=== PATIENT | female | born 1970 | race Caucasian/White ===

== ENCOUNTER 2016-12-23 09:20 | Emergency (ER) | payer OTHER ==
[~2016-12-23 09:20] MED LIST: /PANT40TA OR; ACET65TA OR; ALBU17IN INH; ATROVENT0.02% INH; AVEL1TAB PO; COLA100C2 OR; COMBAER6 INH; FLEX10TA2 PO; FLUO40CA PO; LEVA500T PO; LEVA750T OR; METH40TA OR; NAPR550T PO; NICO21DI4 TD; NYST50SS SS; PRED10TA PO; PRED10TA2 OR; PRED20TA OR; PRED5TAB OR; PREDPOW10 PO; PREG50CA PO; SYMB16INH INH; SYMB80AE IN; XOPE0.632 IN; ZYPR20TA PO
[2016-12-23] MEDS ORDERED: NALOXONE INJ 2 MG/2 ML SYRINGE (J2310) As Ordered ONE (09:22)
[2016-12-23] MEDS ORDERED: NALOXONE INJ 2 MG/2 ML SYRINGE (J2310) IV STA (09:24)
[2016-12-23] MEDS ORDERED: NALOXONE INJ 2 MG/2 ML SYRINGE (J2310) STA (09:26)
[2016-12-23] MEDS ORDERED: NALOXONE INJ 2 MG/2 ML SYRINGE (J2310) IV ONE (09:30)
[2016-12-23] MEDS ORDERED: NS 1,000 ML IV ONE (09:30)
[2016-12-23 09:37] VITALS: BP 123/84
[2016-12-23 09:45] LABS: ABG HCO3 23.9 MEQ/L (22.0-26.0); ABG PARTIAL PRESSURE CO2 40.5 mmHg (35.0-45.0); ABG PARTIAL PRESSURE O2 78.7 mmHg (75.0-100.0); ABG STANDARD HCO3 23.6 MEQ/L (22.0-26.0); ABG TOTAL CO2 25.1 MEQ/L (22.0-29.0); ABG pH (ARTERIAL) 7.388 UNITS (7.350-7.450)
[2016-12-23 09:45] LABS: BASO # 0.1 K/mm3 (0.0-0.2); BASO % 0.6 % (0.0-1.0); EOS # 0.2 K/mm3 (0.0-0.50); EOS % 1.2 % (0.0-3.0); LARGE UNSTAINED CELL # 0.3 K/mm3 (0.0-0.4); LYMPH # 5.1 K/mm3 (1.5-4.5); LYMPH % 34.2 % (24.0-44.0); MEAN CORPUSCULAR HEMOGLOBIN 28.5 pg (27.0-33.0); MEAN CORPUSCULAR HGB CONC 31.9 g/dl (32.0-36.5); MEAN CORPUSCULAR VOLUME 89.2 fl (80.0-96.0); MONO % 7.1 % (0.0-5.0); NEUTROPHILS # 7.8 K/mm3 (1.8-7.7); PLATELET COUNT, AUTOMATED 279 k/mm3 (150-450)
[2016-12-23 09:47] LABS: WHITE BLOOD COUNT 14.1 K/mm3 (4.0-10.0)
[2016-12-23] MEDS ORDERED: NALOXONE INJ 2 MG/2 ML SYRINGE (J2310) ONE (09:49)
[2016-12-23 09:54] LABS: CONTROL LINE HCG INT CTR LINE PRESENT
[2016-12-23 10:14] LABS: ALBUMIN 3.7 GM/DL (3.2-5.2); ALBUMIN/GLOBULIN RATIO 0.79 (1.00-1.93); ALKALINE PHOSPHATASE 150 U/L (45-117); ALT/SGPT 37 U/L (12-78); ANION GAP 9 MEQ/L (8-16); AST/SGOT 39 U/L (15-37); BILIRUBIN,DIRECT 0.1 MG/DL (0.0-0.2); BILIRUBIN,TOTAL 0.4 MG/DL (0.2-1.0); BLOOD UREA NITROGEN 12 MG/DL (7-18); CALCIUM LEVEL 8.6 MG/DL (8.5-10.1); CARBON DIOXIDE LEVEL 27 MEQ/L (21-32); CHLORIDE LEVEL 106 MEQ/L (98-107); CREATININE FOR GFR 0.68 MG/DL (0.55-1.02); GLOMERULAR FILTRATION RATE > 60.0 (>58); GLUCOSE, FASTING 122 MG/DL (70-105); POTASSIUM SERUM 4.5 MEQ/L (3.5-5.1); SODIUM LEVEL 142 MEQ/L (136-145); TOTAL PROTEIN 8.4 GM/DL (6.4-8.2)
--- NOTE | 2016-12-23 20:29 | ECGEPIP ---
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
== END 2016-12-23 10:08 | disposition left against medical advice (07) ==
LOC: M ED 09:48
DX: T40.1X1A Poisoning by heroin, accidental (unintentional), initial encounter (principal); X58.XXXA Exposure to other specified factors, initial encounter; Y92.89 Other specified places as the place of occurrence of the external cause; Y93.89 Activity, other specified; Y99.8 Other external cause status; Z88.0 Allergy status to penicillin; Z79.52 Long term (current) use of systemic steroids; Z79.899 Other long term (current) drug therapy; F17.210 Nicotine dependence, cigarettes, uncomplicated
CPT/HCPCS: 36415; 36600; 80048; 80076; 82550; 82803; 84443; 84703; 85025; 93005; 93041; 96374; 96376; 99285; G0480; J2310

== ENCOUNTER 2017-08-20 19:22 | Emergency (ER) | payer MEDICAID, OTHER, SELFPAY ==
[~2017-08-20] VITALS: Ht 154.9 cm; Wt 95.5 kg
[~2017-08-20 19:22] MED LIST changes: -AVEL1TAB PO; +AVEL1TAB3 PO; +LEVA1TAB2 PO; -LEVA500T PO; +LISI10TA4 PO; +TYLE500T78 PO
[2017-08-20 19:24] VITALS: BP 126/81
[2017-08-20] MEDS ORDERED: FLUO20CA19 (19:36)
[2017-08-20] MEDS ORDERED: DOXE25CA (19:36)
[2017-08-20] MEDS ORDERED: ARIP1TAB (19:36)
[2017-08-20] MEDS ORDERED: DOLO10TA PO (19:36)
[2017-08-20] MEDS ORDERED: NAPR250T4 PO (20:32)
--- NOTE | 2017-08-22 06:13 | REP ---
RIGHT KNEE, COMPLETE: 08/20/2017. Clinical history: Pain, trauma right knee. Findings: Four views provided. The patient could not perform the sunrise position. Findings: There is prominent prepatellar soft tissue swelling in the subcutaneous fat suggesting patellar bursitis. This suggests a traumatic bursitis given the history. There is no definite joint effusion, fracture, loose body or osteochondral defect. No joint space narrowing identified. No avulsion or fracture fragment. Impression: 1. Prepatellar soft tissue swelling that may reflect traumatic bursitis. No definite joint effusion, fracture, subluxation or other acute finding. Very minimal degenerative changes. Signed by Mazin Best MD 08/21/2017 07:03 P
== END 2017-08-20 21:00 | disposition home or self-care (01) ==
LOC: M ED 19:22
DX: M70.51 Other bursitis of knee, right knee (principal); F43.10 Post-traumatic stress disorder, unspecified; F41.9 Anxiety disorder, unspecified; G89.29 Other chronic pain; M54.9 Dorsalgia, unspecified; J44.9 Chronic obstructive pulmonary disease, unspecified; B19.20 Unspecified viral hepatitis C without hepatic coma; F17.210 Nicotine dependence, cigarettes, uncomplicated; Z88.0 Allergy status to penicillin; Z79.51 Long term (current) use of inhaled steroids; Z79.899 Other long term (current) drug therapy

== ENCOUNTER 2017-10-27 01:12 | Emergency (ER) | payer MEDICAID, OTHER ==
[2017-10-27] MEDS: PERCOCET 5MG/325MG TAB PO ×2 (02:29)
== END 2017-10-27 03:43 | disposition home or self-care (01) ==
LOC: M ED 01:12
DX: S52.042A Displaced fracture of coronoid process of left ulna, initial encounter for closed fracture (principal); W19.XXXA Unspecified fall, initial encounter; Y92.099 Unspecified place in other non-institutional residence as the place of occurrence of the external cause; Y93.01 Activity, walking, marching and hiking; J44.9 Chronic obstructive pulmonary disease, unspecified; F43.10 Post-traumatic stress disorder, unspecified; G89.29 Other chronic pain; M54.9 Dorsalgia, unspecified; F17.200 Nicotine dependence, unspecified, uncomplicated; Z79.899 Other long term (current) drug therapy; Z88.0 Allergy status to penicillin
CPT/HCPCS: 73080

== ENCOUNTER 2017-12-03 09:24 | Emergency (ER) | payer OTHER, MEDICAID | END 2017-12-03 11:51 | disposition home or self-care (01) | LOC: M ED 09:24 | DX: S42.402A Unspecified fracture of lower end of left humerus, initial encounter for closed fracture (principal); J44.9 Chronic obstructive pulmonary disease, unspecified; R05 Cough; X58.XXXA Exposure to other specified factors, initial encounter; Y92.9 Unspecified place or not applicable; Y93.9 Activity, unspecified; Z86.19 Personal history of other infectious and parasitic diseases; F41.9 Anxiety disorder, unspecified; F32.9 Major depressive disorder, single episode, unspecified; F43.10 Post-traumatic stress disorder, unspecified; F19.10 Other psychoactive substance abuse, uncomplicated; F17.200 Nicotine dependence, unspecified, uncomplicated; Z79.899 Other long term (current) drug therapy; Z88.0 Allergy status to penicillin | CPT/HCPCS: 71046 ==

== ENCOUNTER → 2018-03-27 | Outpatient (REF) | payer OTHER, MEDICAID ==
[2018-03-27 19:11] LABS: APPEARANCE, URINE HAZY (CLEAR); BACTERIA, URINE AUTO NEGATIVE (NEGATIVE); BILIRUBIN, URINE AUTO NEGATIVE (NEGATIVE); BLOOD, URINE BLOOD NEGATIVE (NEGATIVE); COLOR, URINE YELLOW (YELLOW); GLUCOSE, URINE (UA) AUTO 3+ mg/dL (NEGATIVE); KETONE, URINE AUTO NEGATIVE (NEGATIVE); LEUKOCYTE ESTERASE, URINE AUTO NEGATIVE (NEGATIVE); NITRITE, URINE AUTO NEGATIVE (NEGATIVE); PROTEIN, URINE AUTO NEGATIVE (NEGATIVE); RBC, URINE AUTO 3 /HPF (0-3); SPECIFIC GRAVITY URINE AUTO 1.029 (1.002-1.035); SQUAMOUS EPITHELIAL CELL UR AU 2 /HPF (0-6); UROBILINOGEN, URINE AUTO 0.2 mg/dL (0.0-2.0); WBC, URINE AUTO 3 /HPF (0-3)
== END ==
LOC: M LAB REF 17:06
DX: R41.82 Altered mental status, unspecified (principal)

== ENCOUNTER → 2018-03-28 | Outpatient (CLI) | payer OTHER ==
[2018-03-28 13:17] LABS: BASO % 0.2 % (0.0-1.0); EOS # 0.2 10^3/uL (0.0-0.50); EOS % 2.1 % (0.0-3.0); HEMATOCRIT 46.4 % (36.0-47.0); HEMOGLOBIN 15.1 g/dl (12.0-15.5); IMMATURE GRANULOCYTE % 0.2 % (0-3.0); LYMPH # 3.4 10^3/uL (1.5-4.5); LYMPH % 38.8 % (24.0-44.0); MEAN CORPUSCULAR HEMOGLOBIN 29.1 pg (27.0-33.0); MEAN CORPUSCULAR HGB CONC 32.5 g/dl (32.0-36.5); MEAN CORPUSCULAR VOLUME 89.4 fl (80.0-96.0); MONO # 0.7 10^3/uL (0.0-0.8); MONO % 8.2 % (0.0-5.0); NEUTROPHILS # 4.4 10^3/uL (1.8-7.7); NEUTROPHILS % 50.5 % (36.0-66.0); PLATELET COUNT, AUTOMATED 222 10^3/uL (150-450); RED BLOOD COUNT 5.19 10^6/uL (4.00-5.40); RED CELL DISTRIBUTION WIDTH 13.5 % (11.5-14.5); WHITE BLOOD COUNT 8.7 10^3/uL (4.0-10.0)
[2018-03-28 13:32] LABS: AMMONIA 30 uMOL/L (<32)
[2018-03-28 13:50] LABS: ALBUMIN 3.5 GM/DL (3.2-5.2); ALBUMIN/GLOBULIN RATIO 0.83 (1.00-1.93); ALKALINE PHOSPHATASE 179 U/L (45-117); ALT/SGPT 65 U/L (12-78); ANION GAP 10 MEQ/L (8-16); AST/SGOT 52 U/L (7-37); BILIRUBIN,TOTAL 0.6 MG/DL (0.2-1.0); BLOOD UREA NITROGEN 11 MG/DL (7-18); CALCIUM LEVEL 9.4 MG/DL (8.5-10.1); CARBON DIOXIDE LEVEL 27 MEQ/L (21-32); CHLORIDE LEVEL 96 MEQ/L (98-107); CHOLESTEROL LEVEL 117 MG/DL (<200); CHOLESTEROL RISK RATIO 2.925 (<5); CREATININE FOR GFR 0.97 MG/DL (0.55-1.30); GLOMERULAR FILTRATION RATE > 60.0 (>58); HDL CHOLESTEROL 40 MG/DL (>40); LDL CHOLESTEROL 49.6 MG/DL (<100); NON-HDL-C 77 MG/DL; POTASSIUM SERUM 4.9 MEQ/L (3.5-5.1); SODIUM LEVEL 133 MEQ/L (136-145); TOTAL PROTEIN 7.7 GM/DL (6.4-8.2); TRIGLYCERIDES LEVEL 137 MG/DL (<150)
[2018-03-28 14:08] LABS: ESTIMATED AVERAGE GLUCOSE 278 MG/DL (60-110); HEMOGLOBIN A1c 11.3 %
[2018-03-28 14:20] LABS: GLUCOSE, FASTING 476 MG/DL (70-100)
[2018-03-29 08:31] LABS: HIV 1&2 SCREEN CENTAUR NEGATIVE (NEGATIVE)
[2018-03-30 10:20] LABS: HEPATITIS C QUANTITATION 929300 IU/mL (.)
== END ==
LOC: M LAB 12:15
DX: R41.82 Altered mental status, unspecified (principal); B18.2 Chronic viral hepatitis C
CPT/HCPCS: 72114

== ENCOUNTER 2018-03-31 23:23 | Emergency (ER) | payer OTHER ==
[2018-04-01] MEDS: KETOROLAC 60 MG/2 ML VIAL (J1885) IM (01:27)
[2018-04-01] MEDS: LIDOCAINE W/EPINEPHRINE 1% 20ML VIAL SC (02:00)
[2018-04-01] MEDS: cefTRIAXone SOD 2 GM in D5W MINI-BAG PLUS 50 ML IV (02:56)
== END 2018-04-01 04:14 | disposition home or self-care (01) ==
LOC: M ED 23:23
DX: L02.416 Cutaneous abscess of left lower limb (principal); J44.9 Chronic obstructive pulmonary disease, unspecified; F17.200 Nicotine dependence, unspecified, uncomplicated; Z79.899 Other long term (current) drug therapy; Z88.0 Allergy status to penicillin
CPT/HCPCS: J0696

== ENCOUNTER 2018-04-04 17:45 | Inpatient (IN) | payer OTHER ==
[2018-04-04 20:09] LABS: HEMATOCRIT 40.8 % (36.0-47.0); HEMOGLOBIN 13.6 g/dl (12.0-15.5); MEAN CORPUSCULAR HEMOGLOBIN 29.4 pg (27.0-33.0); MEAN CORPUSCULAR HGB CONC 33.3 g/dl (32.0-36.5); MEAN CORPUSCULAR VOLUME 88.1 fl (80.0-96.0); PLATELET COUNT, AUTOMATED 191 10^3/uL (150-450); RED BLOOD COUNT 4.63 10^6/uL (4.00-5.40); RED CELL DISTRIBUTION WIDTH 13.5 % (11.5-14.5); WHITE BLOOD COUNT 8.9 10^3/uL (4.0-10.0)
[2018-04-04] MEDS: NS 1,000 ML IV ×2 (20:11→23:00)
[2018-04-04 20:24] LABS: ANION GAP 6 MEQ/L (8-16); BLOOD UREA NITROGEN 8 MG/DL (7-18); C REACTIVE PROTEIN QUANTITATIV 4.26 MG/DL (0.00-0.30); CALCIUM LEVEL 8.2 MG/DL (8.5-10.1); CARBON DIOXIDE LEVEL 32 MEQ/L (21-32); CHLORIDE LEVEL 95 MEQ/L (98-107); CREATININE FOR GFR 0.99 MG/DL (0.55-1.30); GLOMERULAR FILTRATION RATE > 60.0 (>58); GLUCOSE, FASTING 359 MG/DL (70-100); POTASSIUM SERUM 3.6 MEQ/L (3.5-5.1); SODIUM LEVEL 133 MEQ/L (136-145)
[2018-04-04 20:37] LABS: ERYTHROCYTE SEDIMENTATION RATE 30 mm/hr (0-20)
[2018-04-04] MEDS ORDERED: ISOVUE-370 76% 100ML VIAL (Q9967) As Ordered (20:42)
[2018-04-04] MEDS: HumaLOG INSULIN (NovoLOG) PER UNIT SC ×2 (21:00→23:04)
[2018-04-04] MEDS ORDERED: DEXTROSE 50% 50 ML SYRINGE IV (23:30)
[2018-04-04] MEDS ORDERED: GLUCOSE 4 GM CHEW TABLET PO (23:30)
[2018-04-04] MEDS ORDERED: GLUCAGON FOR INJ 1 MG VIAL (J1610) SC (23:30)
[2018-04-04] MEDS: metroNIDAZOLE 500 MG in APPROPRIATE DILUENT 1 EA IV (23:51)
[2018-04-05 00:15] LABS: BEDSIDE GLUCOSE 308 MG/DL (70-105)
[2018-04-05] MEDS: LEVEMIR (INSULIN DETEMIR) 1 UNITS/0.01ML SC (00:53)
[2018-04-05] MEDS: AZTREONAM 2 GM in D5W MINI-BAG PLUS 50 ML IV ×3 (01:14→18:29)
[2018-04-05 02:51] LABS: BEDSIDE GLUCOSE 204 MG/DL (70-105)
[2018-04-05 03:51] LABS: AMPHETAMINES LEVEL URINE NEGATIVE (NEGATIVE); BARBITURATES URINE NEGATIVE (NEGATIVE); BENZODIAZEPINES URINE NEGATIVE (NEGATIVE); CANNABINOIDS URINE NEGATIVE (NEGATIVE); COCAINE METABOLITE URINE NEGATIVE (NEGATIVE); METHADONE URINE POSITIVE (NEGATIVE); OPIATES URINE NEGATIVE (NEGATIVE); PHENCYCLIDINE URINE NEGATIVE (NEGATIVE)
[2018-04-05] MEDS: IPRATROPIUM 0.5MG/ALBUTEROL 2.5MG INH SOL UD 3ML (DUONEB)(J7620) NEB ×7 (04:00→23:52)
[2018-04-05] MEDS: HEPARIN SOD (PORCINE) 5000 UNITS/ML VIAL SC ×3 (05:52→22:26)
[2018-04-05] MEDS: metroNIDAZOLE 500 MG in APPROPRIATE DILUENT 1 EA IV ×3 (07:12→22:27)
[2018-04-05] MEDS: NS 1,000 ML IV ×3 (07:12→22:27)
[2018-04-05 08:42] LABS: BEDSIDE GLUCOSE 232 MG/DL (70-105)
[2018-04-05] MEDS: METHADONE 10 MG TAB (S0109) PO (08:49)
[2018-04-05] MEDS: HumaLOG INSULIN (NovoLOG) PER UNIT SC ×4 (08:49→23:55)
[2018-04-05 11:27] LABS: BEDSIDE GLUCOSE 148 MG/DL (70-105)
[2018-04-05] MEDS: LIDOCAINE 1% MDV 20ML VIAL As Ordered (13:05)
[2018-04-05] MEDS: BUPIVACAINE HCL 0.25% 10 ML VIAL As Ordered (13:05)
[2018-04-05] MEDS: LIDOCAINE W/EPINEPHRINE 1% 20ML VIAL As Ordered (13:13)
[2018-04-05] MEDS ORDERED: MIDAZOLAM INJ 2 MG/2 ML VIAL (J2250) As Ordered (14:39)
[2018-04-05] MEDS ORDERED: fentaNYL 100 MCG/2 ML INJECTION (J3010) As Ordered (14:39)
[2018-04-05] MEDS ORDERED: PROPOFOL 200 MG/20 ML VIAL As Ordered ×2 (14:50)
[2018-04-05] MEDS: metroNIDAZOLE/NACL 500MG(5MG/ML)100 ML BAG (S0030) As Ordered (15:00)
[2018-04-05] MEDS ORDERED: ONDANSETRON 4MG/2ML VIAL (J2405) IV (15:30)
[2018-04-05] MEDS ORDERED: fentaNYL 100 MCG/2 ML INJECTION (J3010) IV (15:30)
[2018-04-05] MEDS: LR 1,000 ML IV (15:30)
[2018-04-05 18:19] LABS: BEDSIDE GLUCOSE 100 MG/DL (70-105)
[2018-04-05 20:40] LABS: BEDSIDE GLUCOSE 161 MG/DL (70-105)
[2018-04-05 23:42] LABS: BEDSIDE GLUCOSE 127 MG/DL (70-105)
[2018-04-06] MEDS: ACETAMINOPHEN TAB 650MG DOSE (2X325MG) PO (00:15)
[2018-04-06] MEDS: AZTREONAM 2 GM in D5W MINI-BAG PLUS 50 ML IV ×3 (00:15→17:05)
[2018-04-06] MEDS: IPRATROPIUM 0.5MG/ALBUTEROL 2.5MG INH SOL UD 3ML (DUONEB)(J7620) NEB ×6 (04:00→23:42)
[2018-04-06] MEDS: HEPARIN SOD (PORCINE) 5000 UNITS/ML VIAL SC ×3 (06:18→21:39)
[2018-04-06] MEDS: NS 1,000 ML IV ×3 (06:18→23:28)
[2018-04-06] MEDS: HumaLOG INSULIN (NovoLOG) PER UNIT SC ×4 (06:21→23:29)
[2018-04-06] MEDS: metroNIDAZOLE 500 MG in APPROPRIATE DILUENT 1 EA IV ×3 (06:21→23:28)
[2018-04-06 06:27] LABS: BEDSIDE GLUCOSE 135 MG/DL (70-105)
[2018-04-06 06:37] LABS: BEDSIDE GLUCOSE 117 MG/DL (70-105)
[2018-04-06 08:39] LABS: HEMATOCRIT 41.7 % (36.0-47.0); HEMOGLOBIN 13.4 g/dl (12.0-15.5); MEAN CORPUSCULAR HEMOGLOBIN 29.3 pg (27.0-33.0); MEAN CORPUSCULAR HGB CONC 32.1 g/dl (32.0-36.5); MEAN CORPUSCULAR VOLUME 91.2 fl (80.0-96.0); PLATELET COUNT, AUTOMATED 169 10^3/uL (150-450); RED BLOOD COUNT 4.57 10^6/uL (4.00-5.40); RED CELL DISTRIBUTION WIDTH 13.9 % (11.5-14.5); WHITE BLOOD COUNT 4.8 10^3/uL (4.0-10.0)
[2018-04-06] MEDS: ATORVASTATIN 20 MG TAB PO (08:52)
[2018-04-06 09:14] LABS: ANION GAP 7 MEQ/L (8-16); BLOOD UREA NITROGEN 6 MG/DL (7-18); CALCIUM LEVEL 7.3 MG/DL (8.5-10.1); CARBON DIOXIDE LEVEL 30 MEQ/L (21-32); CHLORIDE LEVEL 107 MEQ/L (98-107); CREATININE FOR GFR 0.64 MG/DL (0.55-1.30); GLOMERULAR FILTRATION RATE > 60.0 (>58); GLUCOSE, FASTING 125 MG/DL (70-100); POTASSIUM SERUM 4.5 MEQ/L (3.5-5.1); SODIUM LEVEL 144 MEQ/L (136-145)
[2018-04-06] MEDS: METHADONE 10 MG TAB (S0109) PO (10:15)
[2018-04-06 11:38] LABS: BEDSIDE GLUCOSE 187 MG/DL (70-105)
[2018-04-06 16:53] LABS: BEDSIDE GLUCOSE 276 MG/DL (70-105)
[2018-04-06 23:22] LABS: BEDSIDE GLUCOSE 352 MG/DL (70-105)
[2018-04-07] MEDS: AZTREONAM 2 GM in D5W MINI-BAG PLUS 50 ML IV ×2 (01:17→08:36)
[2018-04-07] MEDS: IPRATROPIUM 0.5MG/ALBUTEROL 2.5MG INH SOL UD 3ML (DUONEB)(J7620) NEB ×3 (03:27→11:15)
[2018-04-07 05:43] LABS: BEDSIDE GLUCOSE 180 MG/DL (70-105)
[2018-04-07] MEDS: HEPARIN SOD (PORCINE) 5000 UNITS/ML VIAL SC (06:35)
[2018-04-07] MEDS: metroNIDAZOLE 500 MG in APPROPRIATE DILUENT 1 EA IV (06:36)
[2018-04-07] MEDS: HumaLOG INSULIN (NovoLOG) PER UNIT SC ×2 (06:36→12:44)
[2018-04-07 07:06] LABS: HEMATOCRIT 38.3 % (36.0-47.0); HEMOGLOBIN 12.4 g/dl (12.0-15.5); MEAN CORPUSCULAR HGB CONC 32.4 g/dl (32.0-36.5); MEAN CORPUSCULAR VOLUME 89.5 fl (80.0-96.0); PLATELET COUNT, AUTOMATED 172 10^3/uL (150-450); RED BLOOD COUNT 4.28 10^6/uL (4.00-5.40); RED CELL DISTRIBUTION WIDTH 14.2 % (11.5-14.5); WHITE BLOOD COUNT 5.7 10^3/uL (4.0-10.0)
[2018-04-07 07:28] LABS: ANION GAP 7 MEQ/L (8-16); BLOOD UREA NITROGEN 7 MG/DL (7-18); CARBON DIOXIDE LEVEL 25 MEQ/L (21-32); CHLORIDE LEVEL 109 MEQ/L (98-107); CREATININE FOR GFR 0.63 MG/DL (0.55-1.30); GLOMERULAR FILTRATION RATE > 60.0 (>58); GLUCOSE, FASTING 172 MG/DL (70-100); SODIUM LEVEL 141 MEQ/L (136-145)
[2018-04-07] MEDS: METHADONE 10 MG TAB (S0109) PO (08:37)
[2018-04-07] MEDS: EUCERIN 120GM CREAM TOP (09:00)
[2018-04-07 11:30] LABS: BEDSIDE GLUCOSE 222 MG/DL (70-105)
== END 2018-04-07 13:15 | disposition home health service (06) | DRG 383 ==
LOC: M MS5PR 04-05 10:25 → M ED 17:45 → M ED INP 23:07
PROC: 0Y9N0ZZ Drainage of Left Foot, Open Approach (ICD-10-PCS; principal; 2018-04-05 13:30)
DX: L03.116 Cellulitis of left lower limb (principal); Z68.41 Body mass index [BMI] 40.0-44.9, adult; E66.01 Morbid (severe) obesity due to excess calories; J44.9 Chronic obstructive pulmonary disease, unspecified; B19.20 Unspecified viral hepatitis C without hepatic coma; F41.9 Anxiety disorder, unspecified; F31.9 Bipolar disorder, unspecified; M54.5 Low back pain; F11.10 Opioid abuse, uncomplicated; Z88.0 Allergy status to penicillin; Z79.899 Other long term (current) drug therapy; F43.10 Post-traumatic stress disorder, unspecified; G89.29 Other chronic pain; F17.200 Nicotine dependence, unspecified, uncomplicated; E11.9 Type 2 diabetes mellitus without complications

== ENCOUNTER 2018-04-15 18:37 | Emergency (ER) | payer OTHER ==
[2018-04-15 20:51] LABS: BASO % 0.5 % (0.0-1.0); EOS # 0.2 10^3/uL (0.0-0.50); EOS % 2.1 % (0.0-3.0); HEMATOCRIT 43.7 % (36.0-47.0); IMMATURE GRANULOCYTE % 0.3 % (0-3.0); LYMPH % 33.5 % (24.0-44.0); MEAN CORPUSCULAR HEMOGLOBIN 29.5 pg (27.0-33.0); MONO # 0.7 10^3/uL (0.0-0.8); MONO % 7.6 % (0.0-5.0); PLATELET COUNT, AUTOMATED 230 10^3/uL (150-450); RED BLOOD COUNT 4.75 10^6/uL (4.00-5.40); RED CELL DISTRIBUTION WIDTH 14.5 % (11.5-14.5); WHITE BLOOD COUNT 8.9 10^3/uL (4.0-10.0)
[2018-04-15 21:05] LABS: INR 0.91; PROTHROMBIN TIME 12.3 SECONDS (12.1-14.4)
[2018-04-15 21:06] LABS: PARTIAL THROMBOPLASTIN TIME 35.1 SECONDS (25.4-37.6)
[2018-04-15 21:14] LABS: ANION GAP 6 MEQ/L (8-16); BLOOD UREA NITROGEN 6 MG/DL (7-18); CALCIUM LEVEL 8.2 MG/DL (8.5-10.1); CARBON DIOXIDE LEVEL 32 MEQ/L (21-32); CHLORIDE LEVEL 104 MEQ/L (98-107); GLOMERULAR FILTRATION RATE > 60.0 (>58); GLUCOSE, FASTING 58 MG/DL (70-100); POTASSIUM SERUM 3.5 MEQ/L (3.5-5.1); SODIUM LEVEL 142 MEQ/L (136-145)
[2018-04-15 21:15] LABS: ALBUMIN 3.3 GM/DL (3.2-5.2); ALBUMIN/GLOBULIN RATIO 0.69 (1.00-1.93); ALKALINE PHOSPHATASE 121 U/L (45-117); ALT/SGPT 34 U/L (12-78); AST/SGOT 58 U/L (7-37); BILIRUBIN,DIRECT 0.2 MG/DL (0.0-0.2); BILIRUBIN,TOTAL 0.4 MG/DL (0.2-1.0); C REACTIVE PROTEIN QUANTITATIV < 0.30 MG/DL (0.00-0.30); TOTAL PROTEIN 8.1 GM/DL (6.4-8.2)
[2018-04-16 00:16] LABS: ERYTHROCYTE SEDIMENTATION RATE 44 mm/hr (0-20)
== END 2018-04-15 22:59 | disposition home or self-care (01) ==
LOC: M ED 18:37
DX: R60.0 Localized edema (principal); Z98.890 Other specified postprocedural states; E11.9 Type 2 diabetes mellitus without complications; J44.9 Chronic obstructive pulmonary disease, unspecified; B19.20 Unspecified viral hepatitis C without hepatic coma; F19.10 Other psychoactive substance abuse, uncomplicated; M54.9 Dorsalgia, unspecified; F43.10 Post-traumatic stress disorder, unspecified; F31.9 Bipolar disorder, unspecified; Z88.0 Allergy status to penicillin; Z79.899 Other long term (current) drug therapy; Z79.82 Long term (current) use of aspirin; Z79.2 Long term (current) use of antibiotics; Z79.84 Long term (current) use of oral hypoglycemic drugs
CPT/HCPCS: 93970

== ENCOUNTER → 2018-04-18 | Outpatient (CLI) | payer OTHER | LOC: M RAD 14:58 | DX: R22.41 Localized swelling, mass and lump, right lower limb (principal); K74.69 Other cirrhosis of liver | CPT/HCPCS: 76705 ==

== ENCOUNTER → 2018-04-24 | Outpatient (REF) | payer OTHER, MEDICAID ==
[2018-04-24 20:00] LABS: INR 0.94; PROTHROMBIN TIME 12.7 SECONDS (12.1-14.4)
[2018-04-26 11:34] LABS: HEPATITIS B SURFACE ANTIGEN NEGATIVE (NEGATIVE)
[2018-04-26 11:48] LABS: HEPATITIS B CORE ANTIBODY IGM NEGATIVE (NEGATIVE)
[2018-04-26 11:50] LABS: HEPATITIS A ANTIBODY IGM NEGATIVE (NEGATIVE)
[2018-04-26 12:04] LABS: HEPATITIS B SURFACE ANTIBODY POSITIVE (POSITIVE)
[2018-04-27 08:41] LABS: ALPHA 2-MACROGLOBULIN 450 mg/dL (110-276); ALT 52 IU/L (0-40); APOLIPOPROTEIN A-1 133 mg/dL (116-209); FIBROSIS SCORE 0.71 (0.00-0.21); GGT 117 IU/L (0-60); HAPTOGLOBIN 152 mg/dL (34-200); NECROINFLAM SCORE 0.45 (0.00-0.17); NECROINFLAMM GRADE A1-A2 (.); TOTAL BILIRUBIN 0.7 mg/dL (0.0-1.2)
== END ==
LOC: M LAB REF 18:35
DX: B18.2 Chronic viral hepatitis C (principal)

== ENCOUNTER → 2018-05-12 | Outpatient (CLI) | payer OTHER | LOC: M CARPUL 10:29 | DX: R60.0 Localized edema (principal) | CPT/HCPCS: 93306 ==

== ENCOUNTER → 2018-05-17 | Outpatient (REF) | payer OTHER ==
[2018-05-23 00:07] LABS: HEPATITIS C VIRUS GENOTYPE 1b (.)
== END ==
LOC: M LAB REF 17:17
DX: B18.2 Chronic viral hepatitis C (principal)

== ENCOUNTER → 2018-06-15 | Outpatient (REF) | payer OTHER ==
[2018-06-21 14:18] LABS: HPV HYBRID CAPTURE II Negative (Negative)
== END ==
LOC: M LAB REF 09:17
DX: Z12.4 Encounter for screening for malignant neoplasm of cervix (principal)
CPT/HCPCS: 88142

== ENCOUNTER 2018-06-27 01:31 | Emergency (ER) | payer OTHER ==
[2018-06-27] MEDS: AZITHROMYCIN 250 MG TAB PO (05:14)
[2018-06-27] MEDS: predniSONE 20 MG TAB PO (05:14)
[2018-06-28 12:25] LABS: BEDSIDE GLUCOSE 171 MG/DL (70-105)
== END 2018-06-27 05:18 | disposition home or self-care (01) ==
LOC: M ED 01:31
DX: J44.0 Chronic obstructive pulmonary disease with (acute) lower respiratory infection (principal); F17.210 Nicotine dependence, cigarettes, uncomplicated; Z88.0 Allergy status to penicillin; Z79.899 Other long term (current) drug therapy; Z79.84 Long term (current) use of oral hypoglycemic drugs; Z79.82 Long term (current) use of aspirin
CPT/HCPCS: 99283

== ENCOUNTER 2018-08-01 10:54 | Emergency (ER) | payer OTHER | END 2018-08-01 12:07 | disposition home or self-care (01) | LOC: M ED 10:54 | DX: S93.401A Sprain of unspecified ligament of right ankle, initial encounter (principal); S90.111A Contusion of right great toe without damage to nail, initial encounter; W22.09XA Striking against other stationary object, initial encounter; Y92.098 Other place in other non-institutional residence as the place of occurrence of the external cause; J44.9 Chronic obstructive pulmonary disease, unspecified; E11.40 Type 2 diabetes mellitus with diabetic neuropathy, unspecified; F43.10 Post-traumatic stress disorder, unspecified; Z88.0 Allergy status to penicillin; Z79.899 Other long term (current) drug therapy; Z79.82 Long term (current) use of aspirin; Z79.84 Long term (current) use of oral hypoglycemic drugs | CPT/HCPCS: 73610 ==

== ENCOUNTER → 2018-08-29 | Outpatient (CLI) | payer OTHER ==
[~2018-08-29] MED LIST changes: -/PANT40TA OR; -ACET65TA OR; -ALBU17IN INH; -ATROVENT0.02% INH; -AVEL1TAB3 PO; -COLA100C2 OR; -COMBAER6 INH; +E-Z-GAS II EFFERVESCENT PACKET (SODIUM BICARB./CITRIC ACID/SIMETHICONE) As Ordered; +E-Z-HD 98% w/w 340GM SUSP BTL As Ordered; +E-Z-PAQUE 96% w/w SUSP 176GM BTL As Ordered; -FLEX10TA2 PO; -FLUO40CA PO; -LEVA1TAB2 PO; -LEVA750T OR; -LISI10TA4 PO; -METH40TA OR; -NAPR550T PO; -NICO21DI4 TD; -NYST50SS SS; -PRED10TA PO; -PRED10TA2 OR; -PRED20TA OR; -PRED5TAB OR; -PREDPOW10 PO; -PREG50CA PO; -SYMB16INH INH; -SYMB80AE IN; -TYLE500T78 PO; -XOPE0.632 IN; -ZYPR20TA PO
== END ==
LOC: M RAD 09:41
DX: K21.9 Gastro-esophageal reflux disease without esophagitis (principal); J37.0 Chronic laryngitis; Q39.4 Esophageal web
CPT/HCPCS: 74220

== ENCOUNTER → 2018-09-05 | Outpatient (REF) | payer OTHER ==
[2018-09-05 13:25] LABS: ALBUMIN 3.1 GM/DL (3.2-5.2); ALBUMIN/GLOBULIN RATIO 0.72 (1.00-1.93); ALKALINE PHOSPHATASE 142 U/L (45-117); ALT/SGPT 47 U/L (12-78); ANION GAP 5 MEQ/L (8-16); AST/SGOT 46 U/L (7-37); BILIRUBIN,TOTAL 0.6 MG/DL (0.2-1.0); BLOOD UREA NITROGEN 11 MG/DL (7-18); CALCIUM LEVEL 8.3 MG/DL (8.5-10.1); CARBON DIOXIDE LEVEL 33 MEQ/L (21-32); CHLORIDE LEVEL 98 MEQ/L (98-107); CHOLESTEROL LEVEL 95 MG/DL (<200); CHOLESTEROL RISK RATIO 2.714 (<5); CREATININE FOR GFR 0.87 MG/DL (0.55-1.30); GLOMERULAR FILTRATION RATE > 60.0 (>58); GLUCOSE, FASTING 148 MG/DL (70-100); HDL CHOLESTEROL 35 MG/DL (>40); LDL CHOLESTEROL 31 MG/DL (<100); NON-HDL-C 60 MG/DL; POTASSIUM SERUM 4.3 MEQ/L (3.5-5.1); SODIUM LEVEL 136 MEQ/L (136-145); TOTAL PROTEIN 7.4 GM/DL (6.4-8.2); TRIGLYCERIDES LEVEL 147 MG/DL (<150)
[2018-09-05 14:05] LABS: ESTIMATED AVERAGE GLUCOSE 146 MG/DL (60-110); HEMOGLOBIN A1c 6.7 %
== END ==
LOC: M LAB REF 12:18
DX: E11.42 Type 2 diabetes mellitus with diabetic polyneuropathy (principal)
CPT/HCPCS: 84443

== ENCOUNTER → 2018-09-05 | Outpatient (REF) | payer OTHER ==
[2018-09-05 13:17] LABS: NT-PRO BNP 197 PG/ML (<125)
== END ==
LOC: M LAB REF 12:16
DX: R06.02 Shortness of breath (principal)
CPT/HCPCS: 83880

== ENCOUNTER 2019-02-11 04:30 | Emergency (ER) | payer MEDICAID, OTHER ==
[~2019-02-11 04:30] MED LIST changes: +ACET65TA OR; +ALBU17IN INH; +ARIP1TAB; +ASPI81TA85 PO; +ATOR40TA75 PO; +ATROVENT0.02% INH; +AVEL1TAB3 PO; +AZIT-12 PO; +BASA100I SQ; +CIPR-249 PO; +CIPR1TAB20 PO; +COLA100C2 OR; +COMBAER6 INH; +DOLO10TA PO; +DOXE25CA; +DOXY-350 PO; +DULO1CAP2; -E-Z-GAS II EFFERVESCENT PACKET (SODIUM BICARB./CITRIC ACID/SIMETHICONE) As Ordered; -E-Z-HD 98% w/w 340GM SUSP BTL As Ordered; -E-Z-PAQUE 96% w/w SUSP 176GM BTL As Ordered; +FLEX10TA2 PO; +FLUO20CA19; +FLUO40CA PO; +FURO20TA2 PO; +GLIP5TAB8 PO; +HYDR12.55 PO; +IBUP80TA PO; +KETO10TAB PO; +LEVA1TAB2 PO; +LEVA750T OR; +LISI10TA4 PO; +METF-877 PO; +METH10CO PO; +METH10TA2 PO; +METH40TA OR; +METH50TA2 PO; +NAPR250T4 PO; +NAPR550T PO; +NICO21DI4 TD; +NYST50SS SS; +PRED-351 PO; +PRED10TA2 OR; +PRED10TA2 PO; +PRED20TA OR; +PRED20TA PO; +PRED5TAB OR; +PREDPOW10 PO; +PREG50CA PO; +PROT1TAB2 OR; +SPIR50TA4 PO; +SYMB16INH INH; +SYMB80AE IN; +TESS100C PO; +TYLE500T78 PO; +VENTAER INH; +XOPE0.632 IN; +ZITHTAB PO; +ZYPR20TA PO
[2019-02-11] MEDS ORDERED: METAL LOCK LOOP XX ONE (05:48)
== END 2019-02-11 06:06 | disposition expired ==
LOC: M ED 04:30
DX: I46.9 Cardiac arrest, cause unspecified (principal)

== ENCOUNTER → 2019-02-12 | Outpatient (REF) | LOC: M LAB 10:55 ==